=== PATIENT | female | born 1975 | race African-American/Black ===

== ENCOUNTER 2017-04-12 04:54 | Emergency (ER) | payer OTHER ==
[~2017-04-12] VITALS: Ht 177.8 cm; Wt 86.0 kg
[2017-04-12 06:14] VITALS: BP 138/97
== END 2017-04-12 06:57 | disposition left against medical advice (07) ==
LOC: ER 04:54
DX: M54.5 Low back pain (principal); Z53.21 Procedure and treatment not carried out due to patient leaving prior to being seen by health care provider
CPT/HCPCS: 81025

== ENCOUNTER 2017-04-12 07:09 | Emergency (ER) | payer OTHER ==
[~2017-04-12] VITALS: Ht 172.7 cm; Wt 95.0 kg
[2017-04-12 07:12] VITALS: BP 138/70
== END 2017-04-12 09:39 | disposition left against medical advice (07) ==
LOC: ER 07:09
DX: M54.5 Low back pain (principal); Z53.21 Procedure and treatment not carried out due to patient leaving prior to being seen by health care provider